=== PATIENT | female | born 1965 | race Caucasian/White ===

== ENCOUNTER 2022-05-01 13:43 | Outpatient (CLI) | payer BC | END 2022-05-01 13:44 | disposition home or self-care (01) | LOC: SCSMRI 13:43 → BICMRI 13:44 | PROVIDERS: ATTEND Orthopaedic Surgery Hand Surgery | DX: M48.02 Spinal stenosis, cervical region (principal); M47.812 Spondylosis without myelopathy or radiculopathy, cervical region | CPT/HCPCS: 72141 ==